=== PATIENT | female | born 1965 | race Caucasian/White ===

== ENCOUNTER 2022-07-22 15:39 | Emergency (ER) | payer OTHER ==
[2022-07-22] MEDS ORDERED: BACTRIM DS TAB1 EACH PO (18:53)
[2022-07-22] MEDS ORDERED: CEPHALEXIN500 MG PO (18:53)
== END 2022-07-22 19:20 | disposition home or self-care (01) ==
LOC: FER 15:39
DX: S00.262A Insect bite (nonvenomous) of left eyelid and periocular area, initial encounter (principal); I10 Essential (primary) hypertension; E03.9 Hypothyroidism, unspecified; Z79.890 Hormone replacement therapy; Z79.899 Other long term (current) drug therapy; W57.XXXA Bitten or stung by nonvenomous insect and other nonvenomous arthropods, initial encounter
CPT/HCPCS: 99283